=== PATIENT | male | born 1940 | race Caucasian/White ===

== ENCOUNTER → 2023-04-29 12:01 | Outpatient (REF) | payer BC, SELFPAY ==
[2023-04-29 15:51] LABS: PSA, Total - Diagnostic 0.74 ng/ml (0.0-4.0)
== END ==
LOC: HWLAB 12:01
PROVIDERS: ATTENDING PHYSICIAN Internal Medicine
DX: N42.9 Disorder of prostate, unspecified (principal)
CPT/HCPCS: 36415; 84153

== ENCOUNTER → 2023-05-09 11:35 | Outpatient (REF) | payer BC, SELFPAY ==
[2023-05-09 13:22] LABS: % Eosinophils 3.3 % (0-6); % Immature Granulocytes 0.2 % (0-0.5); % Lymphocytes 27.8 % (20.5-51.1); % Monocytes 9.8 % (1.7-9.3); % Neutrophils 57.9 % (42.2-75.2); Absolute Basophils 0.1 10^3/uL (0-0.2); Absolute Eosinophils 0.2 10^3/uL (0-0.7); Absolute Lymphocytes 1.4 10^3/uL (1.2-3.4); Absolute Monocytes 0.5 10^3/uL (0.1-0.6); Absolute Neutrophils 2.8 10^3/uL (1.4-6.5); Hematocrit 39.1 % (39.0-52.0); Mean Corp Hgb Conc. 33.2 g/dL (33.0-37.0); Mean Corpuscular Hgb 32.4 pg (27.0-31.0); Mean Corpuscular Volume 97.5 fL (80.0-94.0); Mean Platelet Volume 10.2 fL (7.4-10.4); Nucleated Red Blood Cells % 0 % (-); Platelet Count 137 10^3/uL (130-400); Red Blood Cell Count 4.01 10^6/uL (4.70-6.10); Red Cell Dist. Width 14.6 % (11.5-14.5); White Blood Cell Count 4.9 10^3/uL (4.8-10.8)
[2023-05-09 14:35] LABS: Iron 82 ug/dl (49-181)
[2023-05-09 14:45] LABS: Percent Saturation 29 % (20-50); Total Iron Binding Capacity 275 ug/dl (261-462)
[2023-05-09 15:06] LABS: Ferritin 45.7 ng/ml (17.9-464.0)
== END ==
LOC: REG 11:35
PROVIDERS: ATTENDING PHYSICIAN Internal Medicine Hematology & Oncology; FAMILY PHYSICIAN Internal Medicine
DX: I82.512 Chronic embolism and thrombosis of left femoral vein (principal)
CPT/HCPCS: 36415; 82728; 83540; 83550; 85025

== ENCOUNTER 2023-08-03 18:06 | Emergency (ER) | payer BC, SELFPAY ==
[2023-08-03 18:08] VITALS: BP 169/82
--- NOTE | 2023-08-03 18:48 | ED.GENMED ---
History of Present Illness
General
Chief Complaint: Breathing Problem
Source: patient
Exam Limitations: none
Time Seen by Provider: 08/03/23 18:23
Travel History
Have you had any contact with someone who has COVID-19?: No
Do you have any symptoms of coronavirus? Fever > 100 degrees, chills, cough, shortness of breath, sore throat, loss of taste or smell, muscle aches, or headache?: No
History of Present Illness
History of Present Illness:
This is a 82 year old male that comes in with c/o SOB. States that he is just not feeling right. States that for the past few nights he has had trouble breathing. States that he has not been able to sleep. Today he started to do some light work in
his garage and he had trouble breathing with dizziness. States that he has also had indigestion. States that he had a headache earlier but he took Tylenol and this is gone. States that he still feels lightheaded. States that he has had this feeling
of SOB all afternoon. Denies any fever, chills, abd pain, nausea, vomiting, diarrhea, urinary burning.
Past History
Past History
ED Past Medical History: HTN, Hypercholesterolemia, Psychiatric (Depression, anxiety) and Other (Dural venous sinus thrombosis, DVT, BPH, kidney stones, Diverticulitis, Brain bleed, Aneurysm of the brain, PNA, PE/DVT, Vertigo)
ED Past Surgical History: Other (Facial surgery, IVF filter, Vena cava stent, Brain Aneurysm. )
Social History
Tobacco: Former smoker
Alcohol: Occasional
Personal:
Living: with family
Family History
Family History: Other (COPD - mother, thromboembolic disease)
Review of Systems
Review of Systems
All Other Systems: ROS reviewed and negative except as documented in HPI and ROS
Constitutional: Reports no symptoms; Denies fever or chills
EENT: Reports no symptoms
Respiratory: Reports trouble breathing; Denies cough
Cardiac: Reports chest pain (indigestion)
ABD/GI: Reports no symptoms; Denies abdominal pain, nausea, vomiting or diarrhea
: Reports no symptoms; Denies dysuria, frequency or urgency
Musculoskeletal: Reports no symptoms
Skin: Reports no symptoms
Neurological: Reports dizzy (Lightheaded); Denies headache
Psychiatric: Reports no symptoms
Phy Exam
General Physical Exam
General Presentation: mild distress
General age: appears stated age
General Skin: warm and dry
General Habitus: elderly
General Mental: alert
General Hydration: appears well hydrated
ENT Exam
ENT Exam: TM's normal, pharynx normal and neck supple
Eye Exam
Eye Exam: EOMI
Cardiovascular Exam
Cardiovascular Exam: regular rate/rhythm, no edema, no murmur and normal peripheral pulses
Pulmonary Exam
Pulmonary Exam: lungs clear, no respiratory distress, no rales, chest non tender, no crackles, no rhonchi, no wheezing and no cough
Gastrointestinal Exam
Gastrointestinal Exam: normal bowel sounds, non tender, soft, no organomegaly, no pulsatile mass and non distended
Musculoskeletal Exam
Musculoskeletal Exam: full ROM and no edema
Skin Exam
Skin Exam: normal color, warm/dry, no rash and no petechia
Psychiatric Exam
Psychiatric Exam: normal mood/affect
Scores
Heart Failure Risk
Heart Failure Risk Score: Not Applicable
Course
Orders/Labs/Results
Orders:
Orders
08/03/23 18:11
Electrocardiogram (*1) Urgent
Reason for Study: Shortness of Breath
EKG- Treatment ONCE
08/03/23 18:48
CT Chest Pe Study Urgent
Comment: history of PE, and brain aneurysm
Reason For Exam: SOB
08/03/23 18:53
Ipratropium/Albuterol Sulfate [Duoneb] 3 ml INH R NOW ONE
08/03/23 18:59
Complete Blood Count/With Diff Urgent
Comprehensive Metabolic Panel Urgent
Troponin I Q3H
08/03/23 19:05
Diphenhydramine [Benadryl] 50 mg IV NOW STA
Hydrocortisone Sod Succinate [Solu-Cortef] 200 mg IV NOW STA
08/03/23 21:00
EKG- Treatment ONCE
08/03/23 22:00
Electrocardiogram (*1) Urgent
Reason for Study: Chest Pain
Other Reason for Exam: Repeat with Troponin
08/03/23 22:19
Troponin I Urgent
Abnormal Lab Results
08/03/23
18:59
RBC 3.68 L 10^6/uL
(4.70-6.10)
Hgb 12.1 L g/dL
(13.0-18.0)
Hct 34.4 L %
(39.0-52.0)
MCH 32.9 H pg
(27.0-31.0)
RDW 14.6 H %
(11.5-14.5)
Monocytes % 9.8 H %
(1.7-9.3)
Chloride 110 H mmol/L
(98-107)
BUN 25 H mg/dl
(9-20)
08/03/23 18:59
08/03/23 18:59
H/H slightly low. Chloride slightly elevated. Dehydration. Troponin <0.012
Second Troponin <0.012
Vital Signs
Initial and Last Documented VS:
Initial Vital Signs
Temp Pulse Resp BP Pulse Ox
98.2 F 70 18 169/82 99
08/03/23 18:08 08/03/23 18:08 08/03/23 18:08 08/03/23 18:08 08/03/23 18:08
Last Documented Vital Signs
Temp Pulse Resp BP Pulse Ox
98.2 F 70 18 156/83 97
08/03/23 18:08 08/03/23 18:08 08/03/23 18:08 08/03/23 20:45 08/03/23 21:00
MDM/Problems Addressed
Differential Diagnosis Includes:
PE, PNA, coronary syndrome
MDM/Problems Addressed:
This is a 82 year old male that comes in with c/o SOB. States that for the past few nights he has had SOB and has not been able to sleep. States that today he had some indigestion and SOB after doing some light work in his garage. States that this
has continued all afternoon.
Will get labs. CT chest, Duo neb
Back into see patient. States that the neb treatment did not really help at all. Explained to patient that his blood work shows slight Dehydration and that his CT of the chest is negative for PE or any other acute process. Will repeat Troponin and
will have patient follow up with his Programmer for further evaluation. Patient to return with any concerns.
Chronic conditions affecting care:
History of PE
Acute Exacerbation and/or Progression of Chronic Illness:
NA
*Radiology
Radiology exam reviewed: radiology read reviewed (Ct chest Night hawk-No evidene of pulmonary artery embolus or thoracic aortic dissection. Incidental aberrant right subclavian artery. Aortic and coronary artery calcifications. Mild cardiomegaly.
Lungs are clear. No pneumonia. Small nonobstructing left upper pole renal stones. No pleural or ) and other (CT cont- no pleural or pericardial effusions. )
*Pulse Oximetry
Patient hypoxic: no
*EKG
Interpreted by ED Provider?: Yes
Heart Rate: 79
Rate: normal
Rhythm: sinus and PAC's
[place]: left axis deviation
Interval: first degree heart block
QRS Pattern: normal QRS
Ischemia: no ischemia (checked by Dr. Christian)
*Critical Care Note
Total Time (30-74mins, 75-104mins- exclusive of procedures): Not Applicable
ED Attending Note
-
Portions of this chart may have been created with voice recognition software.� Occasional wrong word or��sound alike� substitutions may have occurred due to the inherent limitations of voice recognition software.
Discharge Plan
Departure
Patient Disposition: Home (Routine Discharge)
Date of Disposition: 08/03/23
Time of Disposition: 23:11
Patient with high blood pressure during this ER visit?: Yes
Condition: Good
Covid-19: Not Applicable
Discharge Problem:
SOB (shortness of breath), Chest pain
Instructions: Chest Pain NON-[facility] Programmer Follow Up, BLOOD PRESSURE
Prescriptions:
No Action
cholecalciferol (vitamin D3) 2,000 UNITS tablet
2,000 unit PO DAILY
simvastatin 40 MG tablet
40 mg PO HS
amlodipine [Norvasc] 5 mg Tablet
5 mg PO DAILY
losartan 100 mg Tablet
100 mg PO DAILY
Eliquis 5 mg Tablet
5 mg PO BID
amoxicillin-pot clavulanate 875-125 mg tablet
1 tab PO BID Qty: 19 0RF
Referrals:
UNKNOWN - PT DOES,NOT KNOW [Unknown Provider] -
Activity Restrictions/Additional Instructions:
As discussed, your Blood work shows that you are dehydration. Please increase your water intake to 8-8oz glasses daily. Your Both Troponin are normal and your CT of the chest is negative for any acute process. Please follow up with your Programmer
on Saturday for further evaluation and testing. IF YOU HAVE INCREASED SHORTNESS OF BREATH, CHEST PAIN, OR YOU HAVE ANY OTHER CONCERNS PLEASE RETURN TO THE EMERGENCY ROOM.
Interventions
Interventions:
*Risk Screen - Suicide Last Done: 08/03/23 18:08
*Neglect/Abuse Screening Last Done: 08/03/23 18:08
*ED COVID-19 Vaccine History Last Done: 08/03/23 18:08
ED- Cardiac Assessment Last Done: 08/03/23 19:06
ED- Pulmonary Assessment Last Done: 08/03/23 19:06
Discharge Date and Time
Print Language: BERMUDIAN
[2023-08-03 19:00] VITALS: BP 131/80
[2023-08-03] MEDS: DUONEB 3 ML INH (19:00)
[2023-08-03] MEDS: SOLU-CORTEF 200 MG IV (19:10)
[2023-08-03] MEDS: BENADRYL 50 MG IV (19:10)
[2023-08-03 19:16] LABS: % Basophils 0.5 % (0-2); % Eosinophils 2.5 % (0-6); % Immature Granulocytes 0.2 % (0-0.5); % Lymphocytes 30.2 % (20.5-51.1); % Monocytes 9.8 % (1.7-9.3); % Neutrophils 56.8 % (42.2-75.2); Absolute Eosinophils 0.1 10^3/uL (0-0.7); Absolute Lymphocytes 1.7 10^3/uL (1.2-3.4); Absolute Monocytes 0.6 10^3/uL (0.1-0.6); Absolute Neutrophils 3.2 10^3/uL (1.4-6.5); Hematocrit 34.4 % (39.0-52.0); Hemoglobin 12.1 g/dL (13.0-18.0); Mean Corp Hgb Conc. 35.2 g/dL (33.0-37.0); Mean Corpuscular Hgb 32.9 pg (27.0-31.0); Mean Corpuscular Volume 93.5 fL (80.0-94.0); Mean Platelet Volume 9.5 fL (7.4-10.4); Nucleated Red Blood Cells % 0 % (-); Platelet Count 146 10^3/uL (130-400); Red Blood Cell Count 3.68 10^6/uL (4.70-6.10); Red Cell Dist. Width 14.6 % (11.5-14.5); White Blood Cell Count 5.7 10^3/uL (4.8-10.8)
[2023-08-03 19:26] LABS: ALT (SGPT) 17 U/L (0-50); AST (SGOT) 28 U/L (17-59); Albumin 4.1 g/dl (3.5-5.0); Alkaline Phosphatase 55 U/L (38-126); Blood Urea Nitrogen 25 mg/dl (9-20); Calcium 9.6 mg/dl (8.4-10.2); Carbon Dioxide 22 mmol/L (22-30); Chloride 110 mmol/L (98-107); Glucose 98 mg/dl (70-99); Potassium 3.6 mmol/L (3.5-5.1); Sodium 143 mmol/L (135-145); Total Bilirubin 0.5 mg/dl (0.2-1.3); Total Protein 6.5 g/dl (6.3-8.2); eGFR > 60.00
[2023-08-03 19:36] LABS: Troponin I < 0.012 ng/ml
[2023-08-03 20:45] VITALS: BP 156/83
[2023-08-03 22:50] LABS: Troponin I < 0.012 ng/ml
[2023-08-03 23:00] VITALS: BP 131/89
== END 2023-08-03 23:29 | disposition home or self-care (01) ==
LOC: EMR 18:06
PROVIDERS: Clinical Nurse Specialist Family Health; EMERGENCY PHYSICIAN Emergency Medicine; FAMILY PHYSICIAN Internal Medicine
DX: R06.02 Shortness of breath (principal); R07.89 Other chest pain; K30 Functional dyspepsia; R42 Dizziness and giddiness; E86.0 Dehydration; I51.7 Cardiomegaly; N20.0 Calculus of kidney; I10 Essential (primary) hypertension; E78.00 Pure hypercholesterolemia, unspecified; F32.A Depression, unspecified; F41.9 Anxiety disorder, unspecified; N40.0 Benign prostatic hyperplasia without lower urinary tract symptoms; K57.92 Diverticulitis of intestine, part unspecified, without perforation or abscess without bleeding; Z79.01 Long term (current) use of anticoagulants; Z87.891 Personal history of nicotine dependence; Z86.711 Personal history of pulmonary embolism; Z87.442 Personal history of urinary calculi; Z88.5 Allergy status to narcotic agent; Z88.2 Allergy status to sulfonamides; Z88.8 Allergy status to other drugs, medicaments and biological substances
CPT/HCPCS: 99285; 94640; 96374; 96375; 71275; 80053; 84484; 85025; 93005; Q9967

== ENCOUNTER → 2023-08-07 06:50 | Outpatient (REF) | payer BC, SELFPAY ==
[2023-08-07 09:10] LABS: Urine Albumin Negative (Neg - Trace); Urine Bilirubin Negative (Negative); Urine Character Clear (Clear); Urine Color Yellow; Urine Glucose Negative (Negative); Urine Ketone Negative (Negative); Urine Leukocyte Negative (Negative); Urine Nitrite Negative (Negative); Urine Occult Blood Negative (Negative); Urine Specific Gravity 1.015 (<1.030); Urine Urobilinogen Negative (Neg - 1+)
[2023-08-07 09:10] LABS: % Basophils 1.1 % (0-2); % Eosinophils 3.4 % (0-6); % Immature Granulocytes 0.2 % (0-0.5); % Lymphocytes 30.3 % (20.5-51.1); % Monocytes 9.2 % (1.7-9.3); % Neutrophils 55.8 % (42.2-75.2); Absolute Basophils 0.1 10^3/uL (0-0.2); Absolute Eosinophils 0.2 10^3/uL (0-0.7); Absolute Lymphocytes 1.4 10^3/uL (1.2-3.4); Absolute Monocytes 0.4 10^3/uL (0.1-0.6); Absolute Neutrophils 2.7 10^3/uL (1.4-6.5); Hematocrit 37.4 % (39.0-52.0); Mean Corp Hgb Conc. 34.8 g/dL (33.0-37.0); Mean Corpuscular Hgb 33.2 pg (27.0-31.0); Mean Corpuscular Volume 95.7 fL (80.0-94.0); Mean Platelet Volume 9.9 fL (7.4-10.4); Nucleated Red Blood Cells % 0 % (-); Platelet Count 153 10^3/uL (130-400); Red Blood Cell Count 3.91 10^6/uL (4.70-6.10); Red Cell Dist. Width 14.6 % (11.5-14.5); White Blood Cell Count 4.8 10^3/uL (4.8-10.8)
[2023-08-07 10:46] LABS: ALT (SGPT) 21 U/L (0-50); AST (SGOT) 31 U/L (17-59); Albumin 4.2 g/dl (3.5-5.0); Alkaline Phosphatase 58 U/L (38-126); Blood Urea Nitrogen 19 mg/dl (9-20); Calcium 9.2 mg/dl (8.4-10.2); Carbon Dioxide 23 mmol/L (22-30); Chloride 109 mmol/L (98-107); Glucose 108 mg/dl (70-99); HDL Cholesterol 53 mg/dl; LDL Cholesterol, Calculated 85 mg/dl; Magnesium 2.1 mg/dl (1.6-2.3); Potassium 4.2 mmol/L (3.5-5.1); Sodium 142 mmol/L (135-145); Total Bilirubin 0.7 mg/dl (0.2-1.3); Total Cholesterol 158 mg/dl (50-199); Total Protein 6.6 g/dl (6.3-8.2); Triglyceride 104 mg/dl (10-149); Very Low Density Lipoprotein 20 mg/dl (0-30); eGFR > 60.00
[2023-08-07 11:46] LABS: Vitamin D, 25-OH*** 48.1 ng/mL (30-80)
[2023-08-07 12:00] LABS: TSH 1.79 uIU/ml (0.47-4.68)
[2023-08-08 11:31] LABS: CA 19-9 2 U/mL (<=35)
== END ==
LOC: HWLAB 06:50
PROVIDERS: ATTENDING PHYSICIAN Internal Medicine
DX: I10 Essential (primary) hypertension (principal); E78.49 Other hyperlipidemia; E55.9 Vitamin D deficiency, unspecified; K86.2 Cyst of pancreas
CPT/HCPCS: 36415; 80053; 80061; 81003; 82306; 83735; 84443; 85025; 86301

== ENCOUNTER 2023-12-16 12:33 | Emergency (ER) | payer BC, SELFPAY ==
[2023-12-16 12:34] VITALS: BP 157/86
[2023-12-16 12:56] LABS: % Basophils 0.5 % (0-2); % Eosinophils 2.3 % (0-6); % Immature Granulocytes 0.6 % (0-0.5); % Lymphocytes 20.2 % (20.5-51.1); % Neutrophils 68.4 % (42.2-75.2); Absolute Eosinophils 0.2 10^3/uL (0-0.7); Absolute Immature Granulocytes 0.1 10^3/uL (0-0.05); Absolute Lymphocytes 1.8 10^3/uL (1.2-3.4); Absolute Monocytes 0.7 10^3/uL (0.1-0.6); Hematocrit 39.2 % (39.0-52.0); Hemoglobin 13.4 g/dL (13.0-18.0); Mean Corp Hgb Conc. 34.2 g/dL (33.0-37.0); Mean Corpuscular Hgb 32.8 pg (27.0-31.0); Mean Corpuscular Volume 95.8 fL (80.0-94.0); Mean Platelet Volume 9.8 fL (7.4-10.4); Nucleated Red Blood Cells % 0 % (-); Platelet Count 159 10^3/uL (130-400); Red Blood Cell Count 4.09 10^6/uL (4.70-6.10); Red Cell Dist. Width 14.2 % (11.5-14.5); White Blood Cell Count 8.8 10^3/uL (4.8-10.8)
[2023-12-16 13:07] LABS: ALT (SGPT) 20 U/L (0-50); AST (SGOT) 28 U/L (17-59); Albumin 4.4 g/dl (3.5-5.0); Alkaline Phosphatase 62 U/L (38-126); Blood Urea Nitrogen 19 mg/dl (9-20); Calcium 9.2 mg/dl (8.4-10.2); Carbon Dioxide 28 mmol/L (22-30); Chloride 105 mmol/L (98-107); Glucose 119 mg/dl (70-99); Lipase 162 U/L (23-300); Potassium 4.4 mmol/L (3.5-5.1); Sodium 143 mmol/L (135-145); Total Bilirubin 0.6 mg/dl (0.2-1.3); Total Protein 6.8 g/dl (6.3-8.2); eGFR > 60.00
--- NOTE | 2023-12-16 14:45 | ED.GENMED ---
History of Present Illness
General
Chief Complaint: Abdominal Pain
Source: patient
Exam Limitations: none
Time Seen by Provider: 12/16/23 14:27
Nursing documentation reviewed up to this point in time: agreed with
History of Present Illness
History of Present Illness:
83-year-old male presents emergency room complaining of sharp left lower quadrant abdominal pain. Symptoms began 3 days ago. Is been getting worse. He denies any prior pain like this, but states he has a history of diverticulosis seen on
colonoscopy.
Past History
Past History
ED Past Medical History: HTN, Hypercholesterolemia, Psychiatric (Depression, anxiety) and Other (Dural venous sinus thrombosis, DVT, BPH, kidney stones, Diverticulitis, Brain bleed, Aneurysm of the brain, PNA, PE/DVT, Vertigo)
ED Past Surgical History: Other (Facial surgery, IVF filter, Vena cava stent, Brain Aneurysm. )
Social History
Tobacco: Former smoker
Alcohol: Occasional
Personal:
Living: with family
Family History
Family History: Other (COPD - mother, thromboembolic disease)
Review of Systems
Review of Systems
Allergies reviewed?: Yes
All Other Systems: Not applicable
Constitutional: Reports no symptoms
EENT: Reports no symptoms
Respiratory: Reports no symptoms
Cardiac: Reports no symptoms
ABD/GI: Reports abdominal pain
: Reports no symptoms
Musculoskeletal: Reports no symptoms
Skin: Reports no symptoms
Neurological: Reports no symptoms
Endocrine: Reports no symptoms
Hematologic/Lymphatic: Reports no symptoms
Psychiatric: Reports no symptoms
Phy Exam
Physical Exam
Physical Exam:
Physical Exam
General: no apparent distress, not acutely ill
Neck: supple. no meningeal signs. normal posterior pharynx
Heart: s1/s2 regular rate and rhythm, no murmur. equal radial
pulses.
HEENT: Pupils equal round reactive to light, EOMI
Lungs: no acute respiratory distress. clear bilaterally
Abdomen: normal bowel sounds. Left lower quadrant tenderness. No CVAT
Neuro: alert and oriented. no focal neurological deficits cranial nerves II through XII intact
Skin: no rash
Psychiatric: well kept. interactive and cooperative
Extremities: no edema. good distal pulses
Course
Orders/Labs/Results
Orders:
Orders
12/16/23 12:40
Complete Blood Count/With Diff Urgent
Comprehensive Metabolic Panel Urgent
Lipase Urgent
12/16/23 14:44
CT Abd/pelvis W Iv Cont Urgent
Comment:
Reason For Exam: LLQ abdominal pain 3 days
12/16/23 15:09
Urinalysis Reflex To Culture Urgent
Date Specimen was Collected: 12/16/23
Time Specimen was Collected: 15:07
12/16/23 15:32
Diphenhydramine [Benadryl] 50 mg IV NOW STA
Hydrocortisone Sod Succinate [Solu-Cortef] 200 mg IV NOW STA
12/16/23 16:11
Acetaminophen [Tylenol] 650 mg .ROUTE .STK-MED ONE
12/16/23 16:12
Acetaminophen [Tylenol] 650 mg PO NOW STA
12/16/23 18:37
LevoFLOXacin [Levaquin] 500 mg PO NOW STA
MetroNIDAZOLE [Flagyl] 500 mg PO NOW STA
Abnormal Lab Results
12/16/23
12:40
RBC 4.09 L 10^6/uL
(4.70-6.10)
MCV 95.8 H fL
(80.0-94.0)
MCH 32.8 H pg
(27.0-31.0)
Abs Immat Gran (auto) 0.1 H 10^3/uL
(0-0.05)
Absolute Monos (auto) 0.7 H 10^3/uL
(0.1-0.6)
Immature Gran % 0.6 H %
(0-0.5)
Lymphocytes % 20.2 L %
(20.5-51.1)
Glucose 119 H mg/dl
(70-99)
12/16/23 12:40
12/16/23 12:40
Vital Signs
Initial and Last Documented VS:
Initial Vital Signs
Temp Pulse Resp BP Pulse Ox
98.1 F 88 18 157/86 95
12/16/23 12:34 12/16/23 12:34 12/16/23 12:34 12/16/23 12:34 12/16/23 12:34
Last Documented Vital Signs
Temp Pulse Resp BP Pulse Ox
98.1 F 88 18 159/86 98
12/16/23 12:34 12/16/23 12:34 12/16/23 15:40 12/16/23 15:40 12/16/23 15:40
*Radiology
Radiology exam reviewed: radiology read reviewed (ct a/p sigmoid diverticulitis without abscess)
*Pulse Oximetry
Patient hypoxic: no
*Critical Care Note
Total Time (30-74mins, 75-104mins- exclusive of procedures): Not Applicable
Patient Management
Social determinants of health affecting care: Living situation
Escalation/DeEscalation of care consider admission/obs:
Admit not indicated
ED Attending Note
-
Portions of this chart may have been created with voice recognition software.� Occasional wrong word or��sound alike� substitutions may have occurred due to the inherent limitations of voice recognition software.
Discharge Plan
Departure
Patient Disposition: Home (Routine Discharge)
Date of Disposition: 12/16/23
Time of Disposition: 18:38
Patient with high blood pressure during this ER visit?: Yes
Condition: Good
Discharge Problem:
Diverticulitis of sigmoid colon
Instructions: Diverticulitis (DC)
Prescriptions:
New
metronidazole 500 mg tablet
500 mg PO TID Qty: 20 0RF
levofloxacin 500 mg tablet
500 mg PO DAILY 6 Days Qty: 6 0RF
No Action
cholecalciferol (vitamin D3) 2,000 UNITS tablet
2,000 unit PO DAILY
simvastatin 40 MG tablet
40 mg PO HS
amlodipine [Norvasc] 5 mg Tablet
5 mg PO DAILY
losartan 100 mg Tablet
100 mg PO DAILY
Eliquis 5 mg Tablet
5 mg PO BID
amoxicillin-pot clavulanate 875-125 mg tablet
1 tab PO BID Qty: 19 0RF
Referrals:
Velasquez Escoto MD [Family Provider] -
Activity Restrictions/Additional Instructions:
Follow up with Dr. Andres, who did your colonoscopy
Interventions
Interventions:
*Risk Screen - Suicide Last Done: 12/16/23 12:36
*General Assessment Last Done: 12/16/23 12:36
*Neglect/Abuse Screening Last Done: 12/16/23 12:36
*ED COVID-19 Vaccine History Last Done: 12/16/23 12:36
NS-Cpemjm-Lbrmvukdfd Assessment Last Done: 12/16/23 17:43
Discharge Date and Time
Print Language: DIVEHI
[2023-12-16 15:17] LABS: Urine Albumin Negative (Neg - Trace); Urine Bilirubin Negative (Negative); Urine Character Clear (Clear); Urine Color Yellow; Urine Glucose Negative (Negative); Urine Ketone Negative (Negative); Urine Leukocyte Negative (Negative); Urine Nitrite Negative (Negative); Urine Occult Blood Negative (Negative); Urine Urobilinogen Negative (Neg - 1+)
[2023-12-16 15:40] VITALS: BP 159/86
[2023-12-16] MEDS: BENADRYL 50 MG IV (15:56)
[2023-12-16] MEDS: SOLU-CORTEF 200 MG IV (15:56)
[2023-12-16] MEDS: TYLENOL 650 MG PO (16:13)
[2023-12-16] MEDS: LEVAQUIN 500 MG PO (18:46)
[2023-12-16] MEDS: FLAGYL 500 MG PO (18:46)
== END 2023-12-16 18:53 | disposition home or self-care (01) ==
LOC: EMR 12:33
PROVIDERS: Emergency Medicine; EMERGENCY PHYSICIAN Emergency Medicine; FAMILY PHYSICIAN Internal Medicine
DX: K57.32 Diverticulitis of large intestine without perforation or abscess without bleeding (principal); I10 Essential (primary) hypertension; E78.00 Pure hypercholesterolemia, unspecified; F41.8 Other specified anxiety disorders; N40.0 Benign prostatic hyperplasia without lower urinary tract symptoms; Z87.891 Personal history of nicotine dependence; Z87.442 Personal history of urinary calculi; Z86.73 Personal history of transient ischemic attack (TIA), and cerebral infarction without residual deficits; Z86.718 Personal history of other venous thrombosis and embolism
CPT/HCPCS: 99284; 96374; 96375; 74177; 80053; 81003; 83690; 85025; Q9967

== ENCOUNTER → 2024-05-06 11:12 | Outpatient (REF) | payer BC, SELFPAY | LOC: HWLAB 11:12 | PROVIDERS: ATTENDING PHYSICIAN Internal Medicine | DX: N40.1 Benign prostatic hyperplasia with lower urinary tract symptoms (principal) | CPT/HCPCS: 36415; 84153 ==

== ENCOUNTER → 2024-05-25 08:07 | Outpatient (REF) | payer BC, SELFPAY ==
[2024-05-25 10:31] LABS: % Basophils 0.8 % (0-2); % Eosinophils 3.3 % (0-6); % Immature Granulocytes 0.2 % (0-0.5); % Lymphocytes 25.8 % (20.5-51.1); % Neutrophils 60.9 % (42.2-75.2); Absolute Eosinophils 0.2 10^3/uL (0-0.7); Absolute Lymphocytes 1.3 10^3/uL (1.2-3.4); Absolute Monocytes 0.4 10^3/uL (0.1-0.6); Hematocrit 39.2 % (39.0-52.0); Hemoglobin 13.2 g/dL (13.0-18.0); Mean Corp Hgb Conc. 33.7 g/dL (33.0-37.0); Mean Corpuscular Hgb 32.9 pg (27.0-31.0); Mean Corpuscular Volume 97.8 fL (80.0-94.0); Mean Platelet Volume 10.3 fL (7.4-10.4); Nucleated Red Blood Cells % 0 % (-); Platelet Count 129 10^3/uL (130-400); Red Blood Cell Count 4.01 10^6/uL (4.70-6.10); Red Cell Dist. Width 14.3 % (11.5-14.5); White Blood Cell Count 4.9 10^3/uL (4.8-10.8)
[2024-05-25 11:20] LABS: Iron 124 ug/dl (49-181)
[2024-05-25 11:32] LABS: Percent Saturation 44 % (20-50); Total Iron Binding Capacity 279 ug/dl (261-462)
[2024-05-25 12:29] LABS: Ferritin 58.6 ng/ml (17.9-464.0)
== END ==
LOC: HWLAB 08:07
PROVIDERS: ATTENDING PHYSICIAN Internal Medicine Hematology & Oncology; FAMILY PHYSICIAN Internal Medicine
DX: I82.512 Chronic embolism and thrombosis of left femoral vein (principal)
CPT/HCPCS: 36415; 82728; 83540; 83550; 85025

== ENCOUNTER → 2024-06-08 09:35 | Outpatient (REF) | payer BC, SELFPAY ==
[2024-06-08 10:31] LABS: Blood Urea Nitrogen 30 mg/dl (9-20); Carbon Dioxide 27 mmol/L (22-30); Chloride 110 mmol/L (98-107); Glucose 95 mg/dl (70-99); Potassium 4.4 mmol/L (3.5-5.1); Sodium 144 mmol/L (135-145); eGFR > 60.00
== END ==
LOC: REG 09:35
PROVIDERS: ATTENDING PHYSICIAN Internal Medicine
DX: I10 Essential (primary) hypertension (principal)
CPT/HCPCS: 36415; 80048

== ENCOUNTER → 2024-06-12 11:56 | Outpatient (REF) | payer BC, SELFPAY | LOC: RAD 11:56 | PROVIDERS: ATTENDING PHYSICIAN Internal Medicine Cardiovascular Disease | DX: I71.20 Thoracic aortic aneurysm, without rupture, unspecified (principal) | CPT/HCPCS: 71275; Q9967 ==

== ENCOUNTER → 2024-07-29 07:12 | Outpatient (REF) | payer BC, SELFPAY ==
[2024-07-29 08:26] LABS: Urine Albumin 1+ (Neg - Trace); Urine Bilirubin Negative (Negative); Urine Character Clear (Clear); Urine Color Yellow; Urine Glucose Negative (Negative); Urine Ketone Negative (Negative); Urine Leukocyte Negative (Negative); Urine Nitrite Negative (Negative); Urine Occult Blood 1+ (Negative); Urine Urobilinogen Negative (Neg - 1+)
[2024-07-29 08:26] LABS: % Eosinophils 5.2 % (0-6); % Immature Granulocytes 0.2 % (0-0.5); % Lymphocytes 29.7 % (20.5-51.1); % Monocytes 10.3 % (1.7-9.3); % Neutrophils 53.6 % (42.2-75.2); Absolute Eosinophils 0.2 10^3/uL (0-0.7); Absolute Lymphocytes 1.2 10^3/uL (1.2-3.4); Absolute Monocytes 0.4 10^3/uL (0.1-0.6); Absolute Neutrophils 2.2 10^3/uL (1.4-6.5); Hematocrit 40.1 % (39.0-52.0); Hemoglobin 13.4 g/dL (13.0-18.0); Mean Corp Hgb Conc. 33.4 g/dL (33.0-37.0); Mean Corpuscular Hgb 32.4 pg (27.0-31.0); Mean Corpuscular Volume 97.1 fL (80.0-94.0); Mean Platelet Volume 9.7 fL (7.4-10.4); Nucleated Red Blood Cells % 0 % (-); Platelet Count 140 10^3/uL (130-400); Red Blood Cell Count 4.13 10^6/uL (4.70-6.10); Red Cell Dist. Width 14.5 % (11.5-14.5); White Blood Cell Count 4.1 10^3/uL (4.8-10.8)
[2024-07-29 08:34] LABS: Urine Mucus Few; Urine Squamous Cell 0-2 /LPF (Few)
[2024-07-29 08:35] LABS: Urine White Cell 0-2 /HPF (0-5)
[2024-07-29 09:25] LABS: ALT (SGPT) 16 U/L (0-50); AST (SGOT) 23 U/L (17-59); Albumin 4.4 g/dl (3.5-5.0); Alkaline Phosphatase 61 U/L (38-126); Blood Urea Nitrogen 18 mg/dl (9-20); Calcium 9.2 mg/dl (8.4-10.2); Carbon Dioxide 28 mmol/L (22-30); Chloride 110 mmol/L (98-107); Glucose 104 mg/dl (70-99); HDL Cholesterol 49 mg/dl; LDL Cholesterol, Calculated 84 mg/dl; Magnesium 2.1 mg/dl (1.6-2.3); Potassium 4.8 mmol/L (3.5-5.1); Sodium 144 mmol/L (135-145); Total Bilirubin 0.9 mg/dl (0.2-1.3); Total Cholesterol 150 mg/dl (50-199); Total Protein 6.7 g/dl (6.3-8.2); Triglyceride 88 mg/dl (10-149); Very Low Density Lipoprotein 17 mg/dl (0-30); eGFR > 60.00
[2024-07-29 09:51] LABS: PSA, Total - Screen 0.88 ng/ml (0.0-4.0); TSH 1.24 uIU/ml (0.47-4.68)
== END ==
LOC: REG 07:12
PROVIDERS: ATTENDING PHYSICIAN Internal Medicine
DX: N42.9 Disorder of prostate, unspecified (principal); K71.6 Toxic liver disease with hepatitis, not elsewhere classified; I10 Essential (primary) hypertension; I25.10 Atherosclerotic heart disease of native coronary artery without angina pectoris
CPT/HCPCS: 36415; 80053; 80061; 81003; 81015; 83735; 84443; 85025; G0103

== ENCOUNTER 2024-10-14 10:41 | Emergency (ER) | payer BC, SELFPAY ==
[2024-10-14 10:42] VITALS: BP 175/91
--- NOTE | 2024-10-14 11:26 | ED.GENMED ---
History of Present Illness
General
Chief Complaint: Musculo-Skeletal Complaint
Time Seen by Provider: 10/14/24 11:25
History of Present Illness
History of Present Illness:
PAST MEDICAL HISTORY AND REVIEW OF OLD RECORDS
- The patient has history of DVT, high blood pressure, has had PE in the past. I reviewed records, the patient had diagnosis of diverticulitis in December to the seen here.
Note:
CHIEF COMPLAINT(S)
Wrist pain following a fall.
HISTORY OF PRESENT ILLNESS
The patient is an 84-year-old male who presented with wrist pain after a fall that occurred late Saturday night or early Saturday morning. The patient reported tripping while getting out of bed, resulting in the fall. He experienced immediate pain and
later swelling in the wrist, noting that bending the wrist exacerbates the pain. Previously, the patient did not have pain of this severity. An external facility previously evaluated him and had informed him of a fracture. He drove himself to the
current appointment and has not taken any strong analgesics for the pain.
ADDITIONAL HISTORY OBTAINED FROM SOURCES OTHER THAN THE PATIENT
According to the patient, a previous facility diagnosed him with a fracture and provided no reduction or significant intervention at that time.
PHYSICAL EXAM
General: Alert, no acute distress.
Skin: Warm, dry.
Head: Normocephalic, atraumatic.
Neck: Supple, trachea midline.
Eye Ears, Nose, Mouth, and Throat: Oral mucosa moist.
Cardiovascular: Normal peripheral perfusion, no edema.
Respiratory: Respirations are non-labored.
Gastrointestinal: Abdomen nondistended.
Back: Normal range of motion, normal alignment.
Musculoskeletal: Tenderness noted on palpation of the wrist at the radial ulnar joint with only questionable distal ulnar/distal radius tenderness, there is decreased active range of motion due to pain
Neurological: Alert and oriented to person, place, time, and situation, no focal neurological deficit observed.
Psychiatric: Cooperative, appropriate mood & affect.
PLAN
- Obtain X-rays of the wrist to confirm the current status and evaluate the fracture further.
- Consider prescribing pain management medication if warranted by X-ray findings, to be sent to the patients pharmacy.
- Advise keeping the arm elevated to reduce swelling.
DIFFERENTIAL DIAGNOSIS
The Differential Diagnosis includes, in no particular order and is not limited to:
1. Wrist fracture
2. Wrist sprain
3. Osteoporosis-related fracture
4. Soft tissue injury
5. Carpal bone fracture
6. Tendonitis
7. Ligament tear
8. Bursitis
9. Contusion
10. Peripheral nerve injury
RADIOLOGY
- X-ray right wrist obtained which shows ulnar styloid fracture-
UPDATE
-SUMMARY OF ENCOUNTER
The patient, an 84-year-old male, presented to the emergency department with wrist pain following a recent fall. Initial examination and X-rays indicated a possible triquetral fracture, identified by the radiologist. Given the findings, there was no
evidence of dislocation or significant misalignment. The patient was advised to follow up with an sports medicine specialist for further evaluation and potential repeat imaging to assess the fractures significance.
PLAN
The patient is advised to schedule an appointment with an sports medicine specialist for further evaluation of the suspected triquetral fracture. They might repeat X-rays to ensure the fracture is stable and to check for any additional findings.
PATIENT EDUCATION AND COUNSELING
The patient was informed about the suspected triquetral fracture and the need to follow up with an orthopedic doctor. It was explained that the fracture should not be a major concern but requires further assessment.
FOLLOW-UP INSTRUCTIONS
The patient was instructed to follow up with an sports medicine specialist for further evaluation and potential additional imaging.
MEDICATION RECONCILIATION
A prescription for a narcotic analgesic was sent to the patient�s pharmacy for pain management.
MEDICAL DECISION MAKING
- Chronic conditions affecting care include potential consequences from the fall, such as a wrist fracture.
- Differential Diagnosis includes wrist fracture, wrist sprain, osteoporosis-related fracture, soft tissue injury, carpal bone fracture, tendonitis, ligament tear, bursitis, contusion, peripheral nerve injury.
-Data:
- Category 1: X-ray of the wrist was reviewed and analyzed, showing a subtle finding suggestive of a triquetral fracture.
- Category 3: The radiologists interpretation confirmed the suspected triquetral fracture.
DIAGNOSIS
Suspected Triquetral Fracture (ICD-10: S62.116A).
I discussed case with Dr. Barragan who suspected triquetral fracture on imaging that was done at urgent care
The patient has an appoint to see Dr. Patel tomorrow.
Past History
Past History
ED Past Medical History: HTN, Hypercholesterolemia, Psychiatric (Depression, anxiety) and Other (Dural venous sinus thrombosis, DVT, BPH, kidney stones, Diverticulitis, Brain bleed, Aneurysm of the brain, PNA, PE/DVT, Vertigo)
ED Past Surgical History: Other (Facial surgery, IVF filter, Vena cava stent, Brain Aneurysm. )
Social History
Tobacco: Former smoker
Alcohol: Occasional
Personal:
Living: with family
Family History
Family History: Other (COPD - mother, thromboembolic disease)
Phy Exam
Physical Exam
Physical Exam:
See HPI
Course
Orders/Labs/Results
Orders:
Orders
10/14/24 11:27
CR Wrist - Right Min 3 Views Urgent
Comment:
Reason For Exam: worse pain known fracture
10/14/24 12:45
Oxycodone/Acetaminophen [Percocet 5/325] 1 tablet PO NOW STA
Vital Signs
Initial and Last Documented VS:
Initial Vital Signs
Temp Pulse Resp BP Pulse Ox
37.1 C 68 16 175/91 98
10/14/24 10:42 10/14/24 10:42 10/14/24 10:42 10/14/24 10:42 10/14/24 10:42
Last Documented Vital Signs
Temp Pulse Resp BP Pulse Ox
37.1 C 68 16 175/91 98
10/14/24 10:42 10/14/24 10:42 10/14/24 10:42 10/14/24 10:42 10/14/24 11:27
*Pulse Oximetry
SaO2: 98
Oxygen Mode of Delivery: Room air
Patient hypoxic: no
*Critical Care Note
Total Time (30-74mins, 75-104mins- exclusive of procedures): Not Applicable
ED Attending Note
-
Portions of this chart may have been created with voice recognition software.� Occasional wrong word or��sound alike� substitutions may have occurred due to the inherent limitations of voice recognition software.
Discharge Plan
Departure
Patient Disposition: Home (Routine Discharge)
Date of Disposition: 10/14/24
Time of Disposition: 14:00
Patient with high blood pressure during this ER visit?: Yes
Discharge Problem:
Fracture of ulnar styloid
Instructions: Wrist Fracture (DC)
Prescriptions:
New
oxycodone-acetaminophen [Percocet] 5-325 mg tablet
1 tab PO Q6HPRN PRN (Reason: pain) Qty: 10 0RF
No Action
cholecalciferol (vitamin D3) 2,000 UNITS tablet
2,000 unit PO DAILY
simvastatin 40 MG tablet
40 mg PO HS
amlodipine [Norvasc] 5 mg Tablet
5 mg PO DAILY
losartan 100 mg Tablet
100 mg PO DAILY
Eliquis 5 mg Tablet
5 mg PO BID
amoxicillin-pot clavulanate 875-125 mg tablet
1 tab PO BID Qty: 19 0RF
metronidazole 500 mg tablet
500 mg PO TID Qty: 20 0RF
levofloxacin 500 mg tablet
500 mg PO DAILY 6 Days Qty: 6 0RF
Referrals:
Zhang Fernandes MD [Active, Orthopedics]
Velasquez Escoto MD [Family Provider, Internal Medicine]
Activity Restrictions/Additional Instructions:
The x-ray appears to show a fracture through the ulnar styloid however this does not appear to be the location of your maximal pain. The radiologist also noted 'findings of ulnar lunate impingement'. I recommend that you follow-up with Dr. Fernandes or
whomever urgent care had recommended. The radiologist also question the possibility of a triquetral fracture based on the prior x-rays. Regardless, you should follow-up with Dr. Fernandes and use the splint.
Discharge Date and Time
Print Language: ICELANDIC
[2024-10-14] MEDS: PERCOCET 5/325 1 TABLET PO (12:49)
== END 2024-10-14 14:24 | disposition home or self-care (01) ==
LOC: EMR 10:41
PROVIDERS: EMERGENCY PHYSICIAN Emergency Medicine; FAMILY PHYSICIAN Internal Medicine
DX: S52.611A Displaced fracture of right ulna styloid process, initial encounter for closed fracture (principal); W01.0XXA Fall on same level from slipping, tripping and stumbling without subsequent striking against object, initial encounter; E78.00 Pure hypercholesterolemia, unspecified; I10 Essential (primary) hypertension; Z86.711 Personal history of pulmonary embolism; Z86.718 Personal history of other venous thrombosis and embolism; Z86.73 Personal history of transient ischemic attack (TIA), and cerebral infarction without residual deficits; Z87.891 Personal history of nicotine dependence
CPT/HCPCS: 99283; 73110